=== PATIENT | female | born 1960 | race Caucasian/White ===

== ENCOUNTER 2016-08-29 09:02 | Emergency (ER) | payer SELFPAY ==
[~2016-08-29 09:02] MED LIST: ALBUAER3 INH; AZIT500T2 PO; BUPR8SUB SL; CLON.5 PO; IBUP-232 PO; LISI40TA PO; PRED20 PO
[2016-08-29 09:03] VITALS: BP 216/134; PULSE 95; RESP 20; TEMP 98.9; O2SAT 97
[2016-08-29 09:20] VITALS: BP 144/99; PULSE 90
--- NOTE | 2016-08-29 09:26 | PD ---
HPI . left knee pain Chief Complaint: Musculoskeletal Complaint Time Seen by Provider: 09:27 Travel History International Travel<30 days: No Contact w/Intl Traveler<30days: No Traveled to known affect area: No History of Present Illness HPI 56-year-old female here with complaints of left knee pain. Patient was previously seen in the emergency department in March 2016 with similar issues. She presented to the emergency department telling us that she had x- rays taken about 2 months ago in the emergency department. We could not find any of those x-rays, but then discovered she was actually seen in March. She is here complaining of the same left knee pain. 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 She is here requesting an ultrasound to check if she has fluid on her knees and is requesting a note to be excused from work today. She follows with Dr. Mccracken. [facility] and I have actually seen her during that time. PFSH Past Medical History Arthritis: Yes Autoimmune Disease: No Anxiety: Yes Cancer: Yes (SKIN CA) Cardiovascular Problems: No Diabetes: No Diminished Hearing: No Endocrine: No Glaucoma: No Genitourinary: No Hepatitis: No Hiatal Hernia: No Hypertension: Yes Immune Disorder: No Musculoskeletal: No Neurologic: No Psychiatric: No Reproductive: No Respiratory: No Immunizations Current: No Thyroid Disease: No Menopausal: Yes : 3 Para: 3 Tubal Ligation: Yes Past Surgical History Abdominal Surgery: No Cardiac Surgery: No Section: Yes Ear Surgery: No Endocrine Surgery: No Eye Surgery: No Genitourinary Surgery: No Gynecologic Surgery: Yes (2 C-SECTIONS) Joint Replacement: No Oral Surgery: No Pacemaker: No Thoracic Surgery: No Other Surgery: Yes (skin ca removed from left cheek) Social History Alcohol Use: Yes (4 X WEEK 1 PINT VODKA) Tobacco Use: Yes (3/4 PPD) Substance Use: Yes (MARIJUANA) Allergies-Medications (Allergen,Severity, Reaction): Coded Allergies: No Known Allergies (Verified , 04/08/16) Reported Meds & Prescriptions Reported Meds & Active Scripts Active Proair Hfa 8.5 GM Inh (Albuterol Sulfate) 90 Mcg/Act Aer 2 Puff INH Q4-6H PRN 108 mcg/actuation Azithromycin 500 Mg Tab 500 Mg PO DAILY Prednisone 20 Mg Tab 20 Mg PO BID 5 Days Ibuprofen 600 Mg Tab 600 Mg PO Q6H PRN Reported Buprenorphine (Buprenorphine HCl) 8 Mg Subl 8 Mg SL DAILY Klonopin (Clonazepam) 0.5 Mg Tab 0.5 Mg PO BID Lisinopril 40 Mg Tab 40 Mg PO DAILY Review of Systems General / Constitutional: No: Fever Eyes: No: Visual changes HENT: No: Headaches Cardiovascular: No: Chest Pain or Discomfort Respiratory: No: Shortness of Breath Gastrointestinal: No: Abdominal Pain Genitourinary: No: Dysuria Musculoskeletal: Positive: Pain (left knee pain) Skin: No Rash Neurologic: No: Weakness Psychiatric: No: Depression Endocrine: No: Polydipsia Hematologic/Lymphatic: No: Easy Bruising Physical Exam Narrative GENERAL: AAO x 3, no acute distress, Well-nourished, well-developed patient. SKIN: Warm and dry. No visible rashes or bruising. HEAD: Normocephalic and atraumatic. EYES: No scleral icterus. No injection or drainage. ENT: No nasal drainage noted. Mucous membranes pink. Airway patent. NECK: Supple, trachea midline. No JVD. CARDIOVASCULAR: Regular rate and rhythm without murmurs, gallops, or rubs. RESPIRATORY: Breath sounds equally diminished bilaterally. No accessory muscle use. No rhonchi or rales. GASTROINTESTINAL: normal visual inspection EXTREMITIES: No cyanosis or edema. Left knee: There is a small knee effusion. The joint is mobile. There is some slight crepitus present. No evidence of joint laxity. Valgus and vargus stress testing elicits some pain. Both calfs are symmetrical. posterior tibial pulses are normal bilaterally. BACK: Nontender without obvious deformity. No CVA tenderness. PSYCH: AAO x 3, normal affect. Data Data Last Documented VS Vital Signs Date Time Temp Pulse Resp B/P Pulse Ox O2 Delivery O2 Flow Rate FiO2 08/29/16 09:20 90 144/99 08/29/16 09:03 98.9 20 97 Room Air MDM Medical Decision Making Medical Screen Exam Complete: Yes Emergency Medical Condition: No Medical Record Reviewed: Yes Differential Diagnosis Acute on chronic knee pain, osteoarthritis, bursitis Narrative Course 56-year-old female here with complaints of left knee pain. Patient was previously seen in the emergency department in March 2016 with similar issues. She presented to the emergency department telling us that she had x- rays taken about 2 months ago in the emergency department. We could not find any of those x-rays, but then discovered she was actually seen in March. She is here complaining of the same left knee pain. 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 She is here requesting an ultrasound to check if she has fluid on her knees and is requesting a note to be excused from work today. She follows with Dr. Mccracken. [facility] and I have actually seen her during that time. I explained to patient there isn't much I can do for her chronic knee pain. I discussed that she may need to consider ortho f/u for localized cortisone vs. Synvisc or Hyalgan injections. A medical screening exam was performed: At the time of evaluation the presenting medical condition was determined not to be of an emergent nature. The patient was given the option of receiving additional care, but declined. Patient was given options for additional community resources from which to obtain care. The Patient Has Been advised to seek medical attention for their presenting complaint. The patient has been advised to return to the ER at any time if an emergent condition develops. Diagnosis Primary Impression: Encounter for medical screening examination Condition: Briseida Sky Aug 29, 2016 09:25
== END 2016-08-29 10:05 | disposition left against medical advice (07) ==
LOC: NEPK 09:02
DX: M25.562 Pain in left knee (principal)
CPT/HCPCS: 99281

== ENCOUNTER 2017-02-01 10:14 | Inpatient (IN) | payer SELFPAY ==
[~2017-02-01] VITALS: Ht 170.2 cm; Wt 96.6 kg
[2017-02-01] VITALS (10 sets, daily range): BP systolic 82–133; BP diastolic 58–86; PULSE 72–97; RESP 14–18; TEMP 98.2–98.8; O2SAT 95–99
[2017-02-01] MEDS ORDERED: SODIUM CHLOR 0.9% 1000 ML INJ 1,000 ML IV SCH (10:32)
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
[2017-02-01] MEDS ORDERED: SODIUM CHLORIDE 0.9% FLUSH 5 ML FLUSH IV FLUSH PRN (10:45)
[2017-02-01 10:59] LABS: AUTOMATED NEUTROPHIL # 7.6 TH/MM3 (1.8-7.7); BASOPHIL # 0.1 TH/MM3 (0-0.2); BASOPHIL % 0.6 % (0.0-2.0); HEMATOCRIT 39.5 % (35.0-46.0); HEMO FLAGS DIFF FINAL; LYMPHOCYTE # 1.3 TH/MM3 (1.0-4.8); MEAN CELL VOLUME 101.5 FL (80.0-100.0); MEAN CORPUSCULAR HEMOGLOBIN 34.5 PG (27.0-34.0); MONO % 6.5 % (0.0-8.0); NEUT % 78.9 % (16.0-70.0); PLATELET COUNT 279 TH/MM3 (150-450); RED BLOOD COUNT 3.89 MIL/MM3 (4.00-5.30); RED CELL DISTRIBUTION WIDTH 12.3 % (11.6-17.2); WHITE BLOOD COUNT 9.6 TH/MM3 (4.0-11.0)
[2017-02-01 11:03] LABS: BLOOD, URINE NEG (NEG); GLUCOSE,URINE NEG (NEG); KETONE, URINE TRACE mg/dL (NEG); NITRITE,URINE NEG (NEG)
--- NOTE | 2017-02-01 11:06 | RADRPT ---
EXAM DATE/TIME: 02/01/2017 10:52 [facility] COMPARISON: No previous studies available for comparison. INDICATIONS : Cough, short of breath, bilateral shoulder area pain MEDICAL HISTORY : Facial cancer SURGICAL HISTORY : None. ENCOUNTER: Initial ACUITY: 2 days PAIN SCORE: 10/10 LOCATION: Bilateral chest FINDINGS: A single view of the chest demonstrates the lungs to be symmetrically aerated without evidence of mas s, infiltrate or effusion. The cardiomediastinal contours are unremarkable. There is a dextrocurvatu re of the thoracic spine. CONCLUSION: No acute disease. Mitch Young MD on February 01, 2017 at 11:04 Board Certified Radiologist. This report was verified electronically.
[2017-02-01 11:07] LABS: CHLORIDE 101 MEQ/L (98-107); POTASSIUM 4.1 MEQ/L (3.5-5.1); SODIUM (NA) 137 MEQ/L (136-145)
--- NOTE | 2017-02-01 11:07 | EKG ---
Date Performed: 02/01/2017 Time Performed: 10:44:37 PTAGE: 56 years EKG: Baseline artifact present Sinus rhythm NORMAL ECG No significant change from prior electrocardiogram. PREVIOUS TRACING : 05/31/2015 08.01 DOCTOR: Sanchez Lainez Interpretating Date/Time 02/01/2017 11:05:09
[2017-02-01 11:10] LABS: METHOD OF COLLECTION CATH; URINE COLOR YELLOW (YELLW/STRAW)
[2017-02-01 11:11] LABS: ANION GAP 16 MEQ/L (5-15); BACTERIA, URINE FEW /hpf; BICARBONATE 19.6 MEQ/L (21.0-32.0); BLOOD UREA NITROGEN 78 MG/DL (7-18); RBC, URINE 0-3 /hpf (0-3); WBC, URINE 0-2 /hpf (0-5)
[2017-02-01 11:12] LABS: APTT (PATIENT) 28.4 SEC (24.3-30.1); COMMENT (UR) CULT NOT INDICATED; CULTURE IF INDICATED CULT NOT INDICATED; INTERNATIONAL NORMALIZED RATIO 0.9 RATIO; PROTHROMBIN TIME - PATIENT 10.4 SEC (9.8-11.6); SQUAMOUS EPITHELIAL CELL URINE 0-5 /hpf (0-5)
[2017-02-01 11:14] LABS: ALT (GPT) 87 U/L (10-53); AST (GOT) 51 U/L (15-37); GLOMERULAR FILTRATION RATE 6 ML/MIN (>89)
[2017-02-01 11:15] LABS: TOTAL BILIRUBIN ADULT 0.5 MG/DL (0.2-1.0)
[2017-02-01 11:16] LABS: ALKALINE PHOSPHATASE 86 U/L (45-117); CREATINE KINASE 146 U/L (26-192)
[2017-02-01 11:18] LABS: ALCOHOL LESS THAN 3 MG/DL (0-5)
[2017-02-01] MEDS ORDERED: SODIUM CHLOR 0.9% 1000 ML INJ 1,000 ML IV ONE ×3 (11:30→11:45)
[2017-02-01] MEDS ORDERED: SENNOSIDES 8.6 MG TAB PO PRN (11:45)
[2017-02-01] MEDS ORDERED: FLUMAZENIL 0.5 MG/5 ML VIAL IV PUSH PRN (11:45)
[2017-02-01] MEDS ORDERED: LORazepam 2 MG/ML VIAL IV PUSH PRN (11:45)
[2017-02-01] MEDS ORDERED: BISACODYL 10 MG SUPP RECTAL PRN (11:45)
[2017-02-01] MEDS ORDERED: MAGNESIUM HYDROXIDE SUSP 30 ML CUP PO PRN (11:45)
[2017-02-01] MEDS ORDERED: NALOXONE HCL 0.4 MG/ML AMP IV PUSH PRN (11:45)
[2017-02-01] MEDS ORDERED: ACETAMINOPHEN 325 MG TAB PO PRN (11:45)
[2017-02-01] MEDS ORDERED: LORazepam 1 MG TAB PO PRN (11:45)
[2017-02-01] MEDS ORDERED: LACTULOSE SYRUP 20 GM/30 ML CUP PO PRN (11:45)
[2017-02-01] MEDS ORDERED: LORazepam 2 MG TAB PO PRN (11:45)
[2017-02-01] MEDS ORDERED: SODIUM CHLORIDE 0.9% FLUSH 10 ML FLUSH IV FLUSH PRN (11:45)
--- NOTE | 2017-02-01 11:48 | RADRPT ---
EXAM DATE/TIME: 02/01/2017 10:55 [facility] COMPARISON: No previous studies available for comparison. INDICATIONS : Altered mental status, confusion, dizziness. RADIATION DOSE: 63.77 CTDIvol (mGy) MEDICAL HISTORY : Hypertension. skin cancer SURGICAL HISTORY : c sections ENCOUNTER: Initial ACUITY: 2 days PAIN SCALE: 10/10 LOCATION: cranial TECHNIQUE: Multiple contiguous axial images were obtained of the head. Using automated exposure control and adj ustment of the mA and/or kV according to patient size, radiation dose was kept as low as reasonably a chievable to obtain optimal diagnostic quality images. DICOM format image data is available electro nically for review and comparison. FINDINGS: CEREBRUM: The ventricles are normal for age. No evidence of midline shift, mass lesion, hemorrhage or acute in farction. No extra-axial fluid collections are seen. POSTERIOR FOSSA: The cerebellum and brainstem are intact. The 4th ventricle is midline. The cerebellopontine angle i s unremarkable. EXTRACRANIAL: The visualized portion of the orbits is intact. There is opacification of the right maxillary sinus. SKULL: The calvaria is intact. No evidence of skull fracture. 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 This is a normal variant. CONCLUSION: 1. No acute intracranial abnormality is seen. 2. Opacification of the right maxillary sinus. Mitch Young MD on February 01, 2017 at 11:45 Board Certified Radiologist. This report was verified electronically.
[2017-02-01] MEDS ORDERED: ACETAMINOPHEN 325 MG TAB PO ONE (12:30)
--- NOTE | 2017-02-01 13:44 | RADRPT ---
EXAM DATE/TIME: 02/01/2017 12:53 [facility] COMPARISON: CT ABDOMEN & PELVIS W/O CONTRAST, February 14, 2015, 18:20. INDICATIONS : Increased BUN and Creatnine. MEDICAL HISTORY : Hypertension. Arthritis. ETOH abuse. Melenoma. Substance abuse. SURGICAL HISTORY : section. Melenoma removed. ENCOUNTER: Initial ACUITY: 1 day PAIN SCORE: 0/10 LOCATION: Bilateral flank MEASUREMENTS: RIGHT KIDNEY: 10.1 x 4.5 x 4.4 cm LEFT KIDNEY: 11.4 x 6.5 x 5.3 cm FINDINGS: RIGHT KIDNEY: Renal cortex is normal in thickness and echotexture. No hydronephrosis, stone, or mass. LEFT KIDNEY: Renal cortex is normal in thickness and echotexture. No hydronephrosis, stone, or mass. BLADDER: Decompressed secondary to Tavarez catheter. CONCLUSION: 1. Unremarkable renal ultrasound examination. Specifically, no evidence for obstructive uropathy. Tien Clemente MD on February 01, 2017 at 13:41 Board Certified Radiologist. This report was verified electronically.
[2017-02-01] MEDS: SODIUM CHLOR 0.9% 1000 ML INJ 1,000 ML IV SCH (15:22)
[2017-02-01] MEDS: ACETAMINOPHEN/HYDROcodone 325 MG/5 MG TAB PO PRN ×2 (15:28→22:29)
--- NOTE | 2017-02-01 18:05 | HHI.HP ---
[facility] Service [facility] Primary Care Physician Mitch Dozier MD Admission Diagnosis acute renal failure, dehydration Diagnoses: Travel History International Travel<30 Days: No Contact w/Intl Traveler <30 Da: No Traveled to Known Affected Are: No History of Present Illness This is a 56-year-old female with past medical history of hypertension , chronic pain on Suboxone who comes to the ER today complaining of generalized weakness and mild confusion. The patient states that she has been without pallor in her house for the past 5 days since [place]. The patient also has been drinking alcohol consisting of vodka, she is not sure how much, she does consider herself an alcoholic. Last alcoholic drink 2 days ago. The patient had one small episode of emesis yesterday. She denies any diarrhea. Infection is not have a bowel movement in several days. The patient thought she was getting weaker and weaker. The patient states that she was running low on her Suboxone and her last dose was 2 days ago. She's been taking Lortab intermittently. The patient endorses decreased urine output. In the emergency department patient had lab values indicating acute renal failure with BUN of 78 and creatinine of 7.2. Tavarez catheter was placed and she is producing clear yellow urine. Renal ultrasound shows no evidence of obstruction. Review of Systems Constitutional: DENIES: Fever, Chills Eyes: DENIES: Blurred vision, Diplopia Ears, nose, mouth, throat: DENIES: Throat pain, Odynophagia Respiratory: DENIES: Cough, Shortness of breath Cardiovascular: DENIES: Palpitations, Lower Extremity Edema Gastrointestinal: COMPLAINS OF: Constipation, DENIES: Abdominal pain Genitourinary: DENIES: Urinary frequency, Dysuria Musculoskeletal: DENIES: Joint Swelling Integumentary: DENIES: Pruritus, Rash Hematologic/lymphatic: DENIES: Lymphadenopathy Neurologic: DENIES: Abnormal gait, Headache Psychiatric: COMPLAINS OF: Confusion, DENIES: Anxiety Past Family Social History Past Medical History Hypertension Chronic pain Allergies: Coded Allergies: No Known Allergies (Verified , 04/08/16) Family History Negative for renal failure Social History Denies tobacco use or illicit drug use Physical Exam Vital Signs Vital Signs Date Time Temp Pulse Resp B/P (MAP) Pulse Ox O2 Delivery O2 Flow Rate FiO2 02/01/17 17:11 98.8 82 14 132/80 (97) 95 02/01/17 16:48 02/01/17 15:45 86 16 129/74 (92) 95 Room Air 02/01/17 15:24 16 02/01/17 14:45 88 16 104/72 (83) 97 Room Air 02/01/17 13:45 80 16 106/80 (89) 96 Room Air 02/01/17 12:45 84 16 100/78 (85) 96 Room Air 02/01/17 11:56 86 18 103/72 (82) 98 Room Air 02/01/17 11:15 74 16 82/58 (66) 98 Room Air 02/01/17 10:49 98 Room Air 02/01/17 10:17 98.2 97 16 118/74 (89) 97 Physical Exam GENERAL: Well-nourished, well-developed patient. SKIN: Warm and dry. HEAD: Normocephalic. EYES: No scleral icterus. No injection or drainage. NECK: Supple, trachea midline. No JVD or lymphadenopathy. CARDIOVASCULAR: Regular rate and rhythm without murmurs, gallops, or rubs. RESPIRATORY: Breath sounds equal bilaterally. No accessory muscle use. GASTROINTESTINAL: Abdomen soft, non-tender, nondistended. EXTREMITIES: No cyanosis, or edema. NEUROLOGICAL: Awake, alert, and oriented x 3. Non-focal. Laboratory Laboratory Tests Test 02/01/17 10:48 02/01/17 11:55 White Blood Count 9.6 Red Blood Count 3.89 Hemoglobin 13.4 Hematocrit 39.5 Mean Corpuscular Volume 101.5 Mean Corpuscular Hemoglobin 34.5 Mean Corpuscular Hemoglobin Concent 34.0 Red Cell Distribution Width 12.3 Platelet Count 279 Mean Platelet Volume 8.7 Neutrophils (%) (Auto) 78.9 Lymphocytes (%) (Auto) 14.0 Monocytes (%) (Auto) 6.5 Eosinophils (%) (Auto) 0.0 Basophils (%) (Auto) 0.6 Neutrophils # (Auto) 7.6 Lymphocytes # (Auto) 1.3 Monocytes # (Auto) 0.6 Eosinophils # (Auto) 0.0 Basophils # (Auto) 0.1 CBC Comment DIFF FINAL Differential Comment Prothrombin Time 10.4 Prothromb Time International Ratio 0.9 Activated Partial Thromboplast Time 28.4 Urine Collection Type CATH Urine Color YELLOW Urine Turbidity CLEAR Urine pH 5.0 Urine Specific [place] 1.019 Urine Protein TRACE Urine Glucose (UA) NEG Urine Ketones TRACE Urine Occult Blood NEG Urine Nitrite NEG Urine Bilirubin NEG Urine Leukocyte Esterase TRACE Urine RBC 0-3 Urine WBC 0-2 Urine Squamous Epithelial Cells 0-5 Urine Bacteria FEW Microscopic Urinalysis Comment CULT NOT INDICATED Blood Urea Nitrogen 78 Creatinine 7.20 Random Glucose 158 Total Protein 8.6 Albumin 4.5 Calcium Level 9.8 Alkaline Phosphatase 86 Aspartate Amino Transf (AST/SGOT) 51 Alanine Aminotransferase (ALT/SGPT) 87 Total Bilirubin 0.5 Sodium Level 137 Potassium Level 4.1 Chloride Level 101 Carbon Dioxide Level 19.6 Anion Gap 16 Estimat Glomerular Filtration Rate 6 Ammonia 18 Total Creatine Kinase 146 Thyroid Stimulating Hormone 3rd Gen 0.881 Urine Opiates Screen NEG Urine Barbiturates Screen NEG Urine Amphetamines Screen NEG Urine Benzodiazepines Screen POS Urine Cocaine Screen NEG Urine Cannabinoids Screen POS Ethyl Alcohol Level LESS THAN 3 Lactic Acid Level 0.7 Result Diagram: 02/01/17 1048 02/01/17 1048 Imaging Last Impressions Head CT 02/01/17 1032 Signed Impressions: Service Date/Time: Wednesday, February 01, 2017 10:55 - CONCLUSION: 1. No acute intracranial abnormality is seen. 2. Opacification of the right maxillary sinus. Mitch Young MD Chest X-Ray 02/01/17 1032 Signed Impressions: Service Date/Time: Wednesday, February 01, 2017 10:52 - CONCLUSION: No acute disease. Mitch Young MD Renal Ultrasound 02/01/17 0000 Signed Impressions: Service Date/Time: Wednesday, February 01, 2017 12:53 - CONCLUSION: 1. Unremarkable renal ultrasound examination. Specifically, no evidence for obstructive uropathy. MD Toy Lindsey VTE Risk Assessment Caprini VTE Risk Assessment: Mod/High Risk (score >= 2) Caprini Risk Assessment Model Point Value = 1 Point Value = 2 Point Value = 3 Point Value = 5 Age 41-60 Minor surgery BMI > 25 kg/m2 Swollen legs Varicose veins or History of unexplained or recurrent spontaneous Oral contraceptives or hormone replacement Sepsis (< 1 month) Serious lung disease, including pneumonia (< 1 month) Abnormal pulmonary function Acute myocardial infarction Congestive heart failure (< 1 month) History of inflammatory bowel disease Medical patient at bed rest Age 61-74 Arthroscopic surgery Major open surgery (> 45 min) Laparoscopic surgery (> 45 min) Malignancy Confined to bed (> 72 hours) Immobilizing plaster cast Central venous access Age >= 75 History of VTE Family history of VTE Factor V Leiden Prothrombin [id number] Lupus anticoagulant Anticardiolipin antibodies Elevated serum homocysteine Heparin-induced thrombocytopenia Other congenital or acquired thrombophilia Stroke (< 1 month) Elective arthroplasty Hip, pelvis, or leg fracture Acute spinal cord injury (< 1 month) Prophylaxis Regimen Total Risk Factor Score Risk Level Prophylaxis Regimen 0-1 Low Early ambulation 2 Moderate Order ONE of the following: *Sequential Compression Device (SCD) *Heparin 5000 units SQ BID 3-4 Higher Order ONE of the following medications: *Heparin 5000 units SQ TID *Enoxaparin/Lovenox 40 mg SQ daily (WT < 150 kg, CrCl > 30 mL/min) *Enoxaparin/Lovenox 30 mg SQ daily (WT < 150 kg, CrCl > 10-29 mL/min) *Enoxaparin/Lovenox 30 mg SQ BID (WT < 150 kg, CrCl > 30 mL/min) AND/OR *Sequential Compression Device (SCD) 5 or more Highest Order ONE of the following medications: *Heparin 5000 units SQ TID (Preferred with Epidurals) *Enoxaparin/Lovenox 40 mg SQ daily (WT < 150 kg, CrCl > 30 mL/min) *Enoxaparin/Lovenox 30 mg SQ daily (WT < 150 kg, CrCl > 10-29 mL/min) *Enoxaparin/Lovenox 30 mg SQ BID (WT < 150 kg, CrCl > 30 mL/min) AND *Sequential Compression Device (SCD) Assessment and Plan Problem List: (1) ATN (acute tubular necrosis) ICD Code: N17.0 - Acute kidney failure with tubular necrosis (2) Metabolic acidosis ICD Code: E87.2 - Acidosis (3) Alcoholism ICD Code: F10.20 - Alcohol dependence, uncomplicated (4) Acute renal failure ICD Code: N17.9 - Acute kidney failure, unspecified Status: Acute (5) Acute metabolic encephalopathy ICD Code: G93.41 - Metabolic encephalopathy (6) Dehydration ICD Code: E86.0 - Dehydration Status: Acute Assessment and Plan -Acute renal failure, probable ATN - lab values indicating acute renal failure with BUN of 78 and creatinine of 7.2. Tavarez catheter was placed and she is producing clear yellow urine. Renal ultrasound shows no evidence of obstruction. I believe likely etiology is due to dehydration with hypotension. Hold anti-hypertensive. Continue IV fluids and monitoring urine output via Tavarez. If no improvement in renal function tomorrow we'll consult nephrology. -Chronic pain on Suboxone. Last Suboxone dose 2 days ago. Will use Lortab as needed. -Constipation. Initiate Bowel regimen. -Generalized weakness. Consult PT. -Mild confusion. She appears alert oriented appropriately. Head CT was negative. This is likely a mild metabolic encephalopathy. -DVT prophylaxis with heparin subcutaneous. Problem Qualifiers (1) Acute renal failure: Qualified Codes: N17.9 - Acute kidney failure, unspecified Penny Pillai MD Feb 01, 2017 18:05
[2017-02-01] MEDS: DOCUSATE SODIUM 50 MG/SENNA 8.6 MG TAB PO SCH (20:46)
[2017-02-01] MEDS: SODIUM CHLORIDE 0.9% FLUSH 10 ML FLUSH IV FLUSH SCH (20:46)
[2017-02-02] VITALS: BP 131/83; PULSE 70; RESP 18; TEMP 98.4; O2SAT 100
[2017-02-02] MEDS: ACETAMINOPHEN/HYDROcodone 325 MG/5 MG TAB PO PRN ×4 (05:58→21:11)
[2017-02-02 07:42] LABS: AUTOMATED NEUTROPHIL # 5.9 TH/MM3 (1.8-7.7); BASOPHIL % 0.3 % (0.0-2.0); EOSINOPHIL % 0.1 % (0.0-4.0); HEMATOCRIT 38.1 % (35.0-46.0); HEMO FLAGS DIFF FINAL; LYMPH % 17.4 % (9.0-44.0); LYMPHOCYTE # 1.3 TH/MM3 (1.0-4.8); MEAN CELL VOLUME 102.8 FL (80.0-100.0); MEAN CORPUSCULAR HEMOGLOBIN 34.6 PG (27.0-34.0); MEAN CORPUSCULAR HGB CONC 33.7 % (32.0-36.0); MONO % 6.6 % (0.0-8.0); NEUT % 75.6 % (16.0-70.0); PLATELET COUNT 171 TH/MM3 (150-450); RED BLOOD COUNT 3.71 MIL/MM3 (4.00-5.30); RED CELL DISTRIBUTION WIDTH 12.7 % (11.6-17.2); WHITE BLOOD COUNT 7.7 TH/MM3 (4.0-11.0)
[2017-02-02 07:54] LABS: POTASSIUM 4.5 MEQ/L (3.5-5.1)
[2017-02-02 08:00] VITALS: BP 149/98; PULSE 96; RESP 22; TEMP 96.9; O2SAT 98
[2017-02-02] MEDS: SODIUM CHLOR 0.9% 1000 ML INJ 1,000 ML IV SCH ×2 (09:00→17:31)
[2017-02-02] MEDS: SODIUM CHLORIDE 0.9% FLUSH 10 ML FLUSH IV FLUSH SCH ×2 (09:00→21:00)
[2017-02-02] MEDS: DOCUSATE SODIUM 50 MG/SENNA 8.6 MG TAB PO SCH ×2 (09:09→21:08)
[2017-02-02 12:00] VITALS: BP 155/94; PULSE 88; RESP 20; TEMP 97; O2SAT 97
--- NOTE | 2017-02-02 12:09 | HHI.PR ---
Subjective Remarks Patient states that she feels much better, less weak. She ambulated through the halls. Her air conditioning is back on at her house. Patient denies tremors. She complains of not having had a bowel movement still. Objective Vitals Vital Signs Date Time Temp Pulse Resp B/P (MAP) Pulse Ox O2 Delivery O2 Flow Rate FiO2 02/02/17 08:00 96.9 96 22 149/98 (115) 98 02/02/17 07:00 18 02/02/17 00:00 98.4 70 18 131/83 (99) 100 02/01/17 20:00 98.5 72 18 133/86 (102) 99 02/01/17 17:11 98.8 82 14 132/80 (97) 95 02/01/17 16:48 02/01/17 15:45 86 16 129/74 (92) 95 Room Air 02/01/17 15:24 16 02/01/17 14:45 88 16 104/72 (83) 97 Room Air 02/01/17 13:45 80 16 106/80 (89) 96 Room Air 02/01/17 12:45 84 16 100/78 (85) 96 Room Air I/O 02/01/17 02/01/17 02/01/17 02/02/17 02/02/17 02/02/17 07:00 15:00 23:00 07:00 15:00 23:00 Intake Total 2100 ml 480 ml 1000 ml Output Total 850 ml 1000 ml Balance 1250 ml -520 ml 1000 ml Intake Oral 100 ml 480 ml IV Total 2000 ml 1000 ml Output Urine Total 850 ml 1000 ml Result Diagram: 02/02/1771702/02/1718 Objective Remarks GENERAL: Well-nourished, well-developed patient. SKIN: Warm and dry. HEAD: Normocephalic. EYES: No scleral icterus. No injection or drainage. NECK: Supple, trachea midline. No JVD or lymphadenopathy. CARDIOVASCULAR: Regular rate and rhythm without murmurs, gallops, or rubs. RESPIRATORY: Breath sounds equal bilaterally. No accessory muscle use. GASTROINTESTINAL: Abdomen soft, non-tender, nondistended. EXTREMITIES: No cyanosis, or edema. NEUROLOGICAL: Awake, alert, and oriented x 3. Non-focal. A/P Problem List: (1) ATN (acute tubular necrosis) ICD Code: N17.0 - Acute kidney failure with tubular necrosis (2) Metabolic acidosis ICD Code: E87.2 - Acidosis (3) Alcoholism ICD Code: F10.20 - Alcohol dependence, uncomplicated Status: Chronic (4) Acute renal failure ICD Code: N17.9 - Acute kidney failure, unspecified Status: Acute (5) Acute metabolic encephalopathy ICD Code: G93.41 - Metabolic encephalopathy (6) Dehydration ICD Code: E86.0 - Dehydration Status: Acute Assessment and Plan -Acute renal failure, probable ATN - lab values indicating acute renal failure with BUN of 78 and creatinine of 7.2. Tavarez catheter was placed and she is producing clear yellow urine. Renal ultrasound shows no evidence of obstruction. I believe likely etiology is due to dehydration with hypotension. Creatinine much improved today to 1.7. Continue IV fluids will DC Tavarez. -Chronic pain on Suboxone. Last Suboxone dose 2 days ago. Will use Lortab as needed. -Constipation. Initiate Bowel regimen. Lactulose 30 mL 61 this morning. -Generalized weakness. Consult PT. -Mild confusion. She appears alert oriented appropriately. Head CT was negative. This is likely a mild metabolic encephalopathy. She appears back to baseline. -Daily alcohol use. Continue with sternal protocol as needed. No sign of withdrawal. -DVT prophylaxis with heparin subcutaneous. Discharge Planning Likely discharge home tomorrow if renal function continues to improve. Problem Qualifiers (1) Acute renal failure: Qualified Codes: N17.9 - Acute kidney failure, unspecified Penny Pillai MD Feb 02, 2017 12:09
[2017-02-02] MEDS ORDERED: LACTULOSE SYRUP 20 GM/30 ML CUP PO ONE (12:30)
[2017-02-02 16:00] VITALS: BP 168/106; PULSE 75; RESP 20; TEMP 97.5; O2SAT 98
[2017-02-02 20:00] VITALS: BP 162/106; PULSE 68; RESP 18; TEMP 98; O2SAT 98
[2017-02-02 22:00] VITALS: BP_SYST 172; BP_SYST 184; BP_DIAS 110; BP_DIAS 117; PULSE 97; RESP 18; TEMP 98; O2SAT 99
[2017-02-02] MEDS ORDERED: cloNIDine HCL 0.1 MG TAB PO ONE (22:45)
[2017-02-03] VITALS: BP 142/99; PULSE 83; RESP 20; TEMP 97.3; O2SAT 99
[2017-02-03] MEDS: SODIUM CHLOR 0.9% 1000 ML INJ 1,000 ML IV SCH ×2 (01:45→11:51)
[2017-02-03 04:00] VITALS: BP 156/100; PULSE 93; RESP 21; TEMP 98; O2SAT 99
[2017-02-03] MEDS: ACETAMINOPHEN/HYDROcodone 325 MG/5 MG TAB PO PRN ×3 (04:32→14:22)
[2017-02-03 07:26] LABS: POTASSIUM 4.3 MEQ/L (3.5-5.1)
[2017-02-03 07:30] LABS: BICARBONATE 22.7 MEQ/L (21.0-32.0)
[2017-02-03 08:00] VITALS: BP 161/115; PULSE 99; RESP 18; TEMP 97.1; O2SAT 100
[2017-02-03] MEDS: DOCUSATE SODIUM 50 MG/SENNA 8.6 MG TAB PO SCH (10:29)
[2017-02-03] MEDS: SODIUM CHLORIDE 0.9% FLUSH 10 ML FLUSH IV FLUSH SCH (10:30)
[2017-02-03 12:00] VITALS: BP 177/105; PULSE 75; RESP 18; TEMP 97.6; O2SAT 100
[2017-02-03] MEDS ORDERED: LISI40TA PO (13:09)
[2017-02-03] MEDS ORDERED: AMLO5TAB2 PO (13:09)
[2017-02-03] MEDS ORDERED: cloNIDine HCL 0.1 MG TAB PO PRN (13:15)
[2017-02-03] MEDS ORDERED: LISINOPRIL 20 MG TAB PO SCH (14:00)
[2017-02-03] MEDS ORDERED: amLODIPine BESYLATE 5 MG TAB PO SCH (14:00)
[2017-02-03] MEDS ORDERED: NON-FORMULARY DRUG (Lisinopril 40 MG) PO SCH (14:00)
[2017-02-03] MEDS ORDERED: LABETALOL HCL 100 MG/20 ML VIAL IV PUSH ONE (15:30)
[2017-02-03] MEDS ORDERED: hydrALAZINE HCL 20 MG/ML VIAL IV PUSH ONE (15:30)
[2017-02-03 16:37] VITALS: BP 128/78
--- NOTE | 2017-02-03 17:03 | HHI.DCPOC ---
Discharge Care Plan Additional Problems dehydration alcohol use Goals to Promote Your Health * To prevent worsening of your condition and complications * To maintain your health at the optimal level Directions to Meet Your Goals Take your medications as prescribed Follow your dietary instruction Follow activity as directed Keep your appointments as scheduled Take your immunizations and boosters as scheduled If your symptoms worsen call your PCP, if no PCP go to Urgent Care Center or Emergency Room Smoking is Dangerous to Your Health. Avoid second hand smoke Call the 24-hour hour crisis hotline for domestic abuse at Flako Lemus MD Feb 03, 2017 17:03
--- NOTE | 2017-02-03 17:03 | HHI.DS ---
Discharge Summary Admission Date Feb 01, 2017 at 11:36 Discharge Date: Feb 03, 2017 Admitting Diagnosis acute renal failure, dehydration (1) ATN (acute tubular necrosis) ICD Code: N17.0 - Acute kidney failure with tubular necrosis (2) Metabolic acidosis ICD Code: E87.2 - Acidosis (3) Alcoholism ICD Code: F10.20 - Alcohol dependence, uncomplicated Status: Chronic (4) Acute renal failure ICD Code: N17.9 - Acute kidney failure, unspecified Status: Acute (5) Acute metabolic encephalopathy ICD Code: G93.41 - Metabolic encephalopathy (6) Dehydration ICD Code: E86.0 - Dehydration Status: Acute Procedures none Brief History - From Admission This is a 56-year-old female with past medical history of hypertension , chronic pain on Suboxone who comes to the ER today complaining of generalized weakness and mild confusion. The patient states that she has been without pallor in her house for the past 5 days since [place]. The patient also has been drinking alcohol consisting of vodka, she is not sure how much, she does consider herself an alcoholic. Last alcoholic drink 2 days ago. The patient had one small episode of emesis yesterday. She denies any diarrhea. Infection is not have a bowel movement in several days. The patient thought she was getting weaker and weaker. The patient states that she was running low on her Suboxone and her last dose was 2 days ago. She's been taking Lortab intermittently. The patient endorses decreased urine output. In the emergency department patient had lab values indicating acute renal failure with BUN of 78 and creatinine of 7.2. Tavarez catheter was placed and she is producing clear yellow urine. Renal ultrasound shows no evidence of obstruction. CBC/BMP: 02/02/17 0718 02/03/17 1545 Significant Findings Laboratory Tests Test 02/01/17 10:48 02/01/17 11:55 02/02/17 07:18 02/03/17 06:40 Red Blood Count 3.89 MIL/MM3 (4.00-5.30) 3.71 MIL/MM3 (4.00-5.30) Mean Corpuscular Volume 101.5 FL (80.0-100.0) 102.8 FL (80.0-100.0) Mean Corpuscular Hemoglobin 34.5 PG (27.0-34.0) 34.6 PG (27.0-34.0) Neutrophils (%) (Auto) 78.9 % (16.0-70.0) 75.6 % (16.0-70.0) Urine Ketones TRACE mg/dL (NEG) Urine Leukocyte Esterase TRACE (NEG) Urine Bacteria FEW /hpf (NONE) Blood Urea Nitrogen 78 MG/DL (7-18) 42 MG/DL (7-18) 20 MG/DL (7-18) Creatinine 7.20 MG/DL (0.50-1.00) 1.70 MG/DL (0.50-1.00) Random Glucose 158 MG/DL (74-106) 113 MG/DL (74-106) 131 MG/DL (74-106) Total Protein 8.6 GM/DL (6.4-8.2) Aspartate Amino Transf (AST/SGOT) 51 U/L (15-37) Alanine Aminotransferase (ALT/SGPT) 87 U/L (10-53) Carbon Dioxide Level 19.6 MEQ/L (21.0-32.0) Anion Gap 16 MEQ/L (5-15) Estimat Glomerular Filtration Rate 6 ML/MIN (>89) 31 ML/MIN (>89) 58 ML/MIN (>89) Urine Benzodiazepines Screen POS (NEG) Urine Cannabinoids Screen POS (NEG) Chloride Level 108 MEQ/L (98-107) 108 MEQ/L (98-107) Test 02/03/17 15:45 Estimat Glomerular Filtration Rate 58 ML/MIN (>89) PE at Discharge No acute distress Lying in bed, awake alert and oriented 3 Lungs are clear bilaterally, unlabored breathing Hospital Course Patient was admitted and started on aggressive IV hydration. Her renal failure had improved significantly back down to her baseline of CKD with her GFR at about 58. Patient was no longer confused and her encephalopathy had resolved. She is tolerating by mouth intake well and diuresing throughout her entire hospital stay. Her blood pressure was noted to be elevated, patient was restarted on her home medications and her pressure was stabilized. Patient has met maximal benefit from hospitalization and is clinically stable for discharge. Pt Condition on Discharge: Stable Discharge Disposition: Discharge Home Discharge Time: <= 30 minutes Discharge Instructions DIET: Follow Instructions for: As Tolerated, No Restrictions Follow up Referrals: PCP Follow-up - 1 Week Continued Medications: Amlodipine (Amlodipine) 5 Mg Tab 5 MG PO DAILY for Blood Pressure Management, #30 TAB 0 Refills Buprenorphine (Buprenorphine) 8 Mg Subl 8 MG SL DAILY, TAB.SL Clonazepam (Klonopin) 0.5 Mg Tab 0.5 MG PO BID, #60 TAB 0 Refills Lisinopril (Lisinopril) 40 Mg Tab 40 MG PO DAILY for Blood Pressure Management, #30 TAB 0 Refills Flako Lemus MD Feb 03, 2017 17:03
== END 2017-02-03 19:37 | disposition home or self-care (01) | DRG 682 ==
LOC: PHED 10:14 → PHEDA 11:36 → PH5A 17:22
PROVIDERS: ADMIT Hospitalist; ATTEND Hospitalist
DX: N17.0 Acute kidney failure with tubular necrosis (principal); G93.41 Metabolic encephalopathy; E87.2 Acidosis; I95.9 Hypotension, unspecified; E86.0 Dehydration; F17.210 Nicotine dependence, cigarettes, uncomplicated; F41.9 Anxiety disorder, unspecified; M19.90 Unspecified osteoarthritis, unspecified site; G89.29 Other chronic pain; F10.20 Alcohol dependence, uncomplicated; I12.9 Hypertensive chronic kidney disease with stage 1 through stage 4 chronic kidney disease, or unspecified chronic kidney disease; N18.9 Chronic kidney disease, unspecified; K59.00 Constipation, unspecified; Z79.891 Long term (current) use of opiate analgesic; Z85.828 Personal history of other malignant neoplasm of skin
CPT/HCPCS: 70450; 71010; 76775; 80048; 80053; 80307; 81001; 82140; 82550; 82565; 83605; 84443; 84520; 85025; 85610; 85730; 93005; 96360; J7030